=== PATIENT | male | born 1965 | race African-American/Black ===

== ENCOUNTER 2021-04-14 00:37 | Inpatient (IN) | payer MEDICAID ==
[~2021-04-14] VITALS: Ht 167.6 cm; Wt 58.1 kg
[2021-04-14] MEDS ORDERED: LACTATED RINGERS 1,000 ML IV SCH (01:00)
[2021-04-14 01:16] LABS: BASOPHILS % 0.5 % (0.0-2.0); HEMATOCRIT. 40.5 % (42.0-52.0); LYMPHOCYTES % 24.3 % (20.0-50.0); MEAN CORPUSCULAR HEMOGLOBIN 36.3 pg (28.0-32.0); MEAN CORPUSCULAR VOLUME 104.6 fL (80.0-94.0); MEAN PLATELET VOLUME 8.2 fl (7.4-10.4); MONOCYTES % 5.7 % (2.0-8.0); NEUTROPHILS % 68.5 % (40.0-76.0); PLATELET 220 x1000/uL (130-400); RED BLOOD CELL COUNT 3.87 mill/uL (4.7-6.1)
[2021-04-14 01:20] LABS: CHLORIDE 111 mEq/L (98-107)
[2021-04-14 01:24] LABS: ETHANOL BLOOD < 10 mg/dL
[2021-04-14] MEDS ORDERED: FUROSEMIDE 40MG/4ML VIAL IVP NR (01:45)
[2021-04-14] MEDS: CLONIDINE 0.1MG TABLET PO PRN (05:53)
[2021-04-14 06:20] LABS: CLARITY URINE CLEAR (CLEAR); COLOR URINE YELLOW (YELLOW); KETONES URINE NEGATIVE (NEGATIVE); LEUKOCYTE ESTERASE URINE NEGATIVE (NEGATIVE); NITRITE URINE NEGATIVE (NEGATIVE); OCCULT BLOOD URINE NEGATIVE (NEGATIVE); PROTEIN URINE 1+ (NEGATIVE); SPECIFIC GRAVITY URINE 1.009 (1.005-1.030); UROBILINOGEN URINE 0.2 E.U./dL (0.2-1.0)
[2021-04-14 06:33] LABS: *AMPHETAMINES SCREEN URINE NEGATIVE (NEGATIVE); *BARBITURATES SCREEN URINE NEGATIVE (NEGATIVE); *BENZODIAZEPINES SCREEN URINE NEGATIVE (NEGATIVE); OPIATES URINE SCREEN NEGATIVE (NEGATIVE)
[2021-04-14 06:34] LABS: *COCAINE SCREEN URINE PRESUMTIVE POSITIVE (NEGATIVE); CANNABINOID URINE SCREEN NEGATIVE (NEGATIVE); METHADONE URINE SCREEN NEGATIVE (NEGATIVE); PHENCYCLIDINE URINE SCREEN NEGATIVE (NEGATIVE)
[2021-04-14] MEDS ORDERED: ACETAMINOPHEN 325MG TABLET PO PRN (10:00)
[2021-04-14] MEDS ORDERED: FUROSEMIDE 40MG/4ML VIAL IVP SCH (10:00)
[2021-04-14] MEDS ORDERED: IPRATROPIUM/ALBUTEROL 0.5-3(2.5)MG/3ML NEB HHN PRN (10:00)
[2021-04-14] MEDS ORDERED: ONDANSETRON HCL 4MG/2ML INJ IV PRN (10:00)
[2021-04-14] MEDS: AMLODIPINE 10MG TABLET PO SCH (11:51)
[2021-04-14] MEDS ORDERED: HYDRALAZINE HCL 100MG TABLET PO NR (16:30)
[2021-04-14] MEDS: FUROSEMIDE 40MG/4ML VIAL IVP SCH (16:38)
[2021-04-14 21:26] VITALS: BP 135/99
[2021-04-15] VITALS: BP 136/93
[2021-04-15 04:00] VITALS: BP 143/105
[2021-04-15] MEDS: CLONIDINE 0.1MG TABLET PO PRN (04:48)
[2021-04-15 06:19] LABS: BASOPHILS % 0.4 % (0.0-2.0); EOSINOPHILS % 1.3 % (0.0-5.0); HEMATOCRIT. 47.3 % (42.0-52.0); HEMOGLOBIN. 15.7 g/dL (14.0-18.0); LYMPHOCYTES % 20.1 % (20.0-50.0); MEAN CORPUSCULAR HEMOGLOBIN 34.6 pg (28.0-32.0); MEAN CORPUSCULAR VOLUME 104.6 fL (80.0-94.0); MEAN PLATELET VOLUME 8.9 fl (7.4-10.4); NEUTROPHILS % 72.2 % (40.0-76.0); PLATELET 208 x1000/uL (130-400); RED BLOOD CELL COUNT 4.52 mill/uL (4.7-6.1); RED CELL DISTRIBUTION WIDTH 15.8 % (11.6-14.6)
[2021-04-15 08:25] VITALS: BP 133/99
[2021-04-15] MEDS: FUROSEMIDE 40MG/4ML VIAL IVP SCH ×2 (09:52→17:19)
[2021-04-15] MEDS: AMLODIPINE 10MG TABLET PO SCH (09:52)
[2021-04-15] MEDS: HYDRALAZINE HCL 100MG TABLET PO SCH ×2 (09:52→20:56)
[2021-04-15 12:14] VITALS: BP 130/83
[2021-04-15] MEDS: ENOXAPARIN 40MG/0.4ML SYR SUBCUT SCH (12:47)
[2021-04-15 16:06] VITALS: BP 114/87
[2021-04-15 20:00] VITALS: BP 128/83
[2021-04-16] VITALS: BP 138/47
[2021-04-16 03:54] VITALS: BP 116/89
[2021-04-16 08:00] VITALS: BP 109/85
[2021-04-16] MEDS: HYDRALAZINE HCL 100MG TABLET PO SCH ×2 (08:22→20:11)
[2021-04-16] MEDS: AMLODIPINE 10MG TABLET PO SCH (08:23)
[2021-04-16] MEDS: FUROSEMIDE 40MG/4ML VIAL IVP SCH ×2 (08:27→16:42)
[2021-04-16] MEDS ORDERED: KETOROLAC 30MG/ML VIAL IV PRN (12:15)
[2021-04-16] MEDS: ENOXAPARIN 40MG/0.4ML SYR SUBCUT SCH (12:32)
[2021-04-16 12:35] VITALS: BP 101/73
[2021-04-16] MEDS ORDERED: CARV12.545 MT (14:02)
[2021-04-16] MEDS ORDERED: POTA20TA82 MT (14:02)
[2021-04-16] MEDS ORDERED: FURO-151 MT (14:02)
[2021-04-16] MEDS ORDERED: LOSA100T32 MT (14:02)
[2021-04-16 14:31] VITALS: BP 101/75
[2021-04-16 16:38] VITALS: BP 101/75
== END 2021-04-16 21:20 | disposition home or self-care (01) | DRG 133 ==
LOC: ER 00:37 → MICUSO 02:01 → 6WST 20:27
PROVIDERS: ADMIT Internal Medicine; ATTEND Internal Medicine
DX: J96.01 Acute respiratory failure with hypoxia (principal); N17.0 Acute kidney failure with tubular necrosis; I50.41 Acute combined systolic (congestive) and diastolic (congestive) heart failure; J68.0 Bronchitis and pneumonitis due to chemicals, gases, fumes and vapors; J84.9 Interstitial pulmonary disease, unspecified; E87.8 Other disorders of electrolyte and fluid balance, not elsewhere classified; I11.0 Hypertensive heart disease with heart failure; Z20.822 Contact with and (suspected) exposure to COVID-19; F14.90 Cocaine use, unspecified, uncomplicated; R74.01 Elevation of levels of liver transaminase levels; Z71.51 Drug abuse counseling and surveillance of drug abuser
CPT/HCPCS: 36415; 71045; 78580; 80048; 80053; 80305; 80320; 81003; 83605; 83880; 84443; 84484; 85025; 85379; 87426; 93005; 93306; 99285; J1650; J1885; J1940; J2405; G0480